=== PATIENT | male | born 1985 | race Caucasian/White ===

== ENCOUNTER → 2018-08-30 09:41 | Outpatient (CLI) | payer OTHER, SELFPAY ==
--- NOTE | 2018-08-30 | DI.MRI.S_ITS ---
PROCEDURE: MR LUMBAR SPINE WO CON INDICATIONS: LOW BACK PAIN TECHNIQUE: Noncontrast sagittal T1 spin echo and T2 fast echo, sagittal STIR, axial T1 and T2 fast spin echo through the lumbar spine. In cases with scoliosis, additional coronal T2 fast spin echo may be performed. COMPARISON: None. FINDINGS: Image quality: Excellent. Alignment and Curvature: There is normal bony alignment. Bone Marrow: Reactive endplate change is noted adjacent to the L5-S1 disc. No acute vertebral body compression fractures. Spinal Cord: Conus medullaris terminates at the L1 level. Visualized cord demonstrates normal signal and size. Paraspinous Soft Tissues: No paravertebral masses. L1-L2: Normal appearance. L2-L3: Normal appearance. L3-L4: Normal appearance. L4-L5: Loss of disc signal. Mild diffuse disc bulge. No central stenosis. Mild bilateral neural foraminal narrowing. No neural impingement. L5-S1: Loss of disc signal and height. Mild, diffuse disc bulge. No central stenosis. Mild left neural foraminal narrowing. No neural impingement. High intensity zones noted in the annulus compatible with fissures. IMPRESSION: 1. Moderate L5-S1 degenerative disc disease. Mild L4-L5 degenerative disease. 2. No central stenosis. 3. Mild bilateral L4-L5 neural foraminal narrowing. Mild left L5-S1 neural foraminal narrowing. 4. No neural impingement. Dictated by: Erendira Schulz MD, PhD on 08/30/2018 at 10:38 Approved by: Erendira Schulz MD, PhD on 08/30/2018 at 10:40
== END ==
PROVIDERS: Visit Provider General Practice
DX: M54.5 Low back pain (principal); M51.37 Other intervertebral disc degeneration, lumbosacral region; M51.36 Other intervertebral disc degeneration, lumbar region; M48.07 Spinal stenosis, lumbosacral region; M48.061 Spinal stenosis, lumbar region without neurogenic claudication
CPT/HCPCS: 72148